=== PATIENT | female | born 1995 | race Caucasian/White ===

== ENCOUNTER 2017-07-13 16:48 | Emergency (ER) | payer OTHER ==
[~2017-07-13] VITALS: Ht 167.6 cm; Wt 96.5 kg
[2017-07-13 18:10] LABS: HEMATOCRIT 40.1 % (36.0-46.0); HEMOGLOBIN 14.3 G/DL (11.9-15.5); MCH 31.2 PG (29.0-34.0); MCHC 35.7 G/DL (30.0-36.0); MCV 87.4 FL (83-99); PLATELET COUNT 245 K/uL (156-360); RBC DIS.WIDTH-CV 12.7 % (11.8-14.6); RBC DIS.WIDTH-SD 39.8 % (39-53); RED BLOOD COUNT 4.59 M/uL (3.80-5.20); WHITE BLOOD COUNT 5.9 K/uL (4.1-10.2)
[2017-07-13 18:22] LABS: ALBUMIN 4.9 g/dL (3.2-4.8); CHLORIDE 109 mEq/L (99-109); POTASSIUM 3.7 mEq/L (3.7-5.4); SODIUM 142 mEq/L (136-147)
[2017-07-13 18:24] LABS: GLUCOSE 85 mg/dL (70-99)
[2017-07-13 18:25] LABS: TOTAL PROTEIN 7.6 g/dL (6.4-8.3)
[2017-07-13 18:26] LABS: TOTAL BILIRUBIN 0.5 mg/dL (0.0-1.0)
[2017-07-13 18:28] LABS: ALKALINE PHOSPHATASE 65 IU/L (3-129); CREATININE 0.8 mg/dL (0.6-1.3); GFR ESTIMATE (CALCULATED) > 59 mL/min/
[2017-07-13 18:29] LABS: UREA NITROGEN (BUN) 11 mg/dL (9-23)
[2017-07-13 18:30] LABS: AST (GOT) 18 IU/L (2-34)
[2017-07-13 18:31] LABS: ALT (GPT) 15 IU/L (3-49)
[2017-07-13 20:18] LABS: QUANTITATIVE HCG < 4.0 MIU/ML
[2017-07-13] MEDS ORDERED: KEFLEX500 MG PO (21:33)
[2017-07-13 22:10] VITALS: BP 00/0
== END 2017-07-13 22:12 | disposition home or self-care (01) ==
LOC: EME 16:48
DX: L02.415 Cutaneous abscess of right lower limb (principal); Z48.01 Encounter for change or removal of surgical wound dressing; J45.909 Unspecified asthma, uncomplicated
CPT/HCPCS: 80053; 84702; 85027; 99281; 99284